=== PATIENT | female | born 1980 | race Two or more races ===

== ENCOUNTER → 2020-04-15 | Outpatient (CLI) | payer OTHER ==
--- NOTE | 2020-04-15 15:11 | RAD ---
US PELVIS W/TV History: Irregular menses Comparison: None. Findings: Multiple transabdominal sonographic images of the pelvis are submitted. Uterus measured 9 x 3.3 x 5.4 cm is. Endometrium measured 0.6 cm in thickness. Transvaginal ultrasound: Multiple transvaginal sonographic images of the pelvis are submitted. Left ovary measured 3.2 x 1.6 x 2.8 cm. There are several follicles/small cysts of the left ovary with the largest 1.8 cm. There is normal color flow and low resistance vascularity of the left ovary. Right ovary is not visualized. No free fluid is demonstrated. Impression: 1. Endometrial thickness is within normal limits. 2. Right ovary was not visualized on this exam. 3. There are several follicles/small cysts of the left ovary with the largest about 1.8 cm. Electronically signed by: Zachery Jarvis MD (04/15/2020 3:08 PM) [id number]
== END | disposition home or self-care (01) ==
LOC: US 11:30
PROVIDERS: ATTEND Physician Assistant
DX: R93.89 Abnormal findings on diagnostic imaging of other specified body structures (principal); N92.1 Excessive and frequent menstruation with irregular cycle
CPT/HCPCS: 76830; 76856